=== PATIENT | female | born 1945 | race African-American/Black ===

== ENCOUNTER 2018-01-27 15:28 | Emergency (ER) | payer OTHER, BC ==
[~2018-01-27] VITALS: Ht 170.2 cm; Wt 77.1 kg
--- NOTE | ~2018-01-27 | EKG ---
[address] [address] [place] [address] ELECTROCARDIOGRAM REPORT Name: COREY ZAVALA Room #: DEP HARLEY Jacobo#: [id number] Admission: 01/27/18 Attend Phys: Discharge: 01/27/18 Date of : 41 Report #: [id number] THIS REPORT FOR: //name// [facility] ED Test Date: 2018-01-27 Test Time: 16:38:50 Pat Name: COREY ZAVALA Department: Room: Gender: Medical Records Tech: salena : 1945 Requested By: Lora Barragan Order Number: [id number] MD: Damir Smith Measurements Intervals Luke Rate: 76 P: 42 NV: 164 QRS: -19 QRSD: 82 T: 31 QT: 401 QTc: 451 Interpretive Statements Sinus rhythm Poor R wave progression No previous ECG available for comparison Electronically Signed On 01-28-2018 12:53:26 CDT by Damir Smith [email or web address] <ELECTRONICALLY SIGNED> By: Damir Smith MD, [facility] 01/28/18 1253 [id number] [id number] Damir Smith MD, FACC /EPI
[2018-01-27 15:52] LABS: URINE BILIRUBIN NEGATIVE (Negative); URINE BLOOD TRACE (Negative); URINE CLARITY CLEAR; URINE COLOR YELLOW; URINE GLUCOSE-RANDOM* NEGATIVE (Negative); URINE KETONES NEGATIVE (Negative); URINE LEUKOCYTES-REFLEX NEGATIVE (Negative); URINE NITRITE-REFLEX NEGATIVE (Negative); URINE PROTEIN (DIPSTICK) 1+ (Negative); URINE UROBILINOGEN 0.2 E.U./dl (0.2-1.0)
[2018-01-27 16:04] LABS: BACTERIA-REFLEX 1-9 Few /HPF (None Seen); CASTS None Seen /LPF (None Seen); CRYSTALS None Seen /LPF (None Seen); SQUAMOUS >10 Many /LPF (0-3); URINE WBC-REFLEX 6-15 Few /HPF (0-5)
[2018-01-27] MEDS ORDERED: BYSTOLIC 5 MG5 M1 PO (16:38)
[2018-01-27 16:47] LABS: ABSOLUTE NEUTROPHILS 3.9 thou/uL (1.4-8.2); BASOPHILS 0.4 % (0.0-2.0); EOSINOPHILS 1.2 % (0.0-3.0); HEMOGLOBIN 14.7 gm/dL (12.0-15.0); MCHC 34.2 g/dL (28.0-37.0); MCV 99.6 fL (80.0-100.0); MONOCYTES 7.7 % (1.0-8.0); PLATELET COUNT 234 thou/uL (150-400); POLYS 76.7 % (36.0-66.0); RBC 4.32 mil/uL (4.20-5.00); RDW 13.2 % (10.5-14.5); WBC 5.1 thou/uL (4.0-11.0)
[2018-01-27 17:02] LABS: ANION GAP 8 mmol/L (7-16); BUN 16 mg/dL (7-18); CALCIUM 9.2 mg/dL (8.5-10.1); CHLORIDE 107 mmol/L (98-107); CO2 25 mmol/L (21-32); GLUCOSE 116 mg/dL (74-106); POTASSIUM 3.7 mmol/L (3.5-5.1); SODIUM 140 mmol/L (136-145)
[2018-01-27 17:10] LABS: ALBUMIN 3.9 g/dL (3.4-5.0); SGOT 27 U/L (15-37); SGPT 37 U/L (30-65); TOTAL BILIRUBIN 0.4 mg/dL (<0.1-1.0); TOTAL PROTEIN 7.4 g/dL (6.4-8.2); TROPONIN-I < 0.04 ng/mL (<0.06)
[2018-01-27 18:44] VITALS: BP 175/88
== END 2018-01-27 18:46 | disposition home or self-care (01) ==
LOC: ER 15:28
PROVIDERS: Nurse Practitioner Family
DX: R55 Syncope and collapse (principal)

== ENCOUNTER 2018-02-04 15:17 | Observation (INO) | payer OTHER, BC ==
[~2018-02-04] VITALS: Ht 170.2 cm; Wt 73.9 kg
--- NOTE | ~2018-02-04 | EKG ---
[address] [address] [place] [address] ELECTROCARDIOGRAM REPORT Name: COREY ZAVALA Room #: 206-P [facility] M.R.#: [id number] Admission: 02/04/18 Attend Phys: Qi Hill Discharge: 02/05/18 Date of : 41 Report #: [id number] THIS REPORT FOR: //name// [facility] ED Test Date: 2018-02-04 Test Time: 15:16:57 Pat Name: COREY ZAVALA Department: Room: Gender: F Contract Paralegal: PRABHJOT : 1945 Requested By: Mark Astudillo Order Number: [id number] MD: Damir Smith Measurements Intervals Gilbert Rate: 79 P: 56 CO: 166 QRS: -16 QRSD: 82 T: 46 QT: 396 QTc: 455 Interpretive Statements Sinus rhythm Poor R wave progression Compared to ECG 01/27/2018 16:38:50 No significant change was found Electronically Signed On 02-07-2018 9:08:35 CDT by Damir Smith [email or web address] <ELECTRONICALLY SIGNED> By: Damir Smith MD, [facility] 02/07/18 0908 15 Damir Smith MD, [facility] /EPI
[2018-02-04 15:17] VITALS: BP 182/89
[~2018-02-04 15:17] MED LIST: BYSTOLIC 5 MG5 M1 PO
[2018-02-04 16:06] LABS: ABSOLUTE NEUTROPHILS 3.8 thou/uL (1.4-8.2); EOSINOPHILS 0.9 % (0.0-3.0); HEMATOCRIT 44.3 % (37.0-47.0); HEMOGLOBIN 15.5 gm/dL (12.0-15.0); LYMPHOCYTES 17.9 % (24.0-44.0); MCH 34.5 pg (26.0-34.0); MCV 98.4 fL (80.0-100.0); MONOCYTES 6.5 % (1.0-8.0); PLATELET COUNT 240 thou/uL (150-400); POLYS 73.7 % (36.0-66.0); RDW 12.8 % (10.5-14.5); WBC 5.2 thou/uL (4.0-11.0)
[2018-02-04 16:20] LABS: ANION GAP 7 mmol/L (7-16); BUN 14 mg/dL (7-18); CALCIUM 9.5 mg/dL (8.5-10.1); CHLORIDE 103 mmol/L (98-107); CO2 27 mmol/L (21-32); GLUCOSE 115 mg/dL (74-106); SODIUM 137 mmol/L (136-145)
[2018-02-04 16:28] LABS: ALBUMIN 4.1 g/dL (3.4-5.0); SGOT 28 U/L (15-37); SGPT 37 U/L (30-65); TOTAL BILIRUBIN 0.4 mg/dL (<0.1-1.0); TOTAL PROTEIN 7.7 g/dL (6.4-8.2); TROPONIN-I <0.06 ng/mL (<0.06)
[2018-02-04 18:16] VITALS: BP 182/89
[2018-02-04 18:39] VITALS: BP 181/87
[2018-02-04] MEDS ORDERED: BYSTOLIC 5 MG5 M1 PO (20:15)
[2018-02-04] MEDS ORDERED: PRAVACHOL20 MG PO (20:15)
[2018-02-04] MEDS ORDERED: HYDROXYCHLOROQ200 M1 PO (20:15)
[2018-02-04] MEDS ORDERED: CELEBREX 200 M200 M1 PO (20:19)
[2018-02-04] MEDS ORDERED: ULTRAM 50MG TAB50 MG PO (20:19)
[2018-02-04] MEDS ORDERED: ZANTAC 150MG T150 MG (20:20)
[2018-02-04] MEDS ORDERED: FLONASE 0.05%50 MCG NASAL (20:20)
[2018-02-04] MEDS ORDERED: ASPIR 8181 MG PO (20:21)
[2018-02-04] MEDS ORDERED: VITAMIN D2000 UNIT PO (20:21)
[2018-02-04] MEDS ORDERED: FISH OIL 1,001000 M2 PO (20:22)
[2018-02-04] MEDS ORDERED: CALCIUM 600 +1 EAC1 PO (20:22)
[2018-02-04] MEDS ORDERED: GLUCOSAMINE HC500 MG PO (20:22)
[2018-02-04] MEDS ORDERED: VITAMIN B-12500 MCG PO (20:23)
[2018-02-05 03:47] VITALS: BP 139/74
[2018-02-05 08:13] VITALS: BP 139/58
[2018-02-05] MEDS ORDERED: PREDNISONE 20 M20 MG PO (09:13)
[2018-02-05 10:41] VITALS: BP 139/58
== END 2018-02-05 13:41 | disposition home or self-care (01) ==
LOC: ER 15:17 → EROBS 17:39 → 2N 18:41
PROVIDERS: Physician Assistant
DX: R55 Syncope and collapse (principal); I10 Essential (primary) hypertension; Z86.73 Personal history of transient ischemic attack (TIA), and cerebral infarction without residual deficits; Z87.891 Personal history of nicotine dependence; Z79.899 Other long term (current) drug therapy